=== PATIENT | female | born 1975 | race Caucasian/White ===

== ENCOUNTER → 2024-02-24 15:37 | Outpatient (REF) | payer OTHER, SELFPAY | LOC: RAD 15:37 | PROVIDERS: ATTENDING PHYSICIAN Chiropractor; FAMILY PHYSICIAN Physician Assistant Medical | DX: M99.01 Segmental and somatic dysfunction of cervical region (principal); M99.02 Segmental and somatic dysfunction of thoracic region | CPT/HCPCS: 72050; 72072 ==

== ENCOUNTER → 2024-03-18 09:46 | Outpatient (REF) | payer OTHER, SELFPAY | LOC: HWRAD 09:46 | PROVIDERS: ATTENDING PHYSICIAN Obstetrics & Gynecology Gynecology; FAMILY PHYSICIAN Physician Assistant Medical | DX: N93.8 Other specified abnormal uterine and vaginal bleeding (principal) | CPT/HCPCS: 76830; 76856 ==

== ENCOUNTER → 2024-12-27 10:21 | Outpatient (REF) | payer BC, SELFPAY | LOC: RAD 10:21 | PROVIDERS: ATTENDING PHYSICIAN Chiropractor | DX: M25.559 Pain in unspecified hip (principal) | CPT/HCPCS: 73522 ==